=== PATIENT | female | born 1960 | race Caucasian/White ===

== ENCOUNTER → 2024-10-20 | Outpatient (CLI) | payer BC, MEDICARE ==
[2024-10-20] MEDS: HEParin 5,000 UNIT VIAL ONE (13:57)
== END | disposition home or self-care (01) ==
LOC: RAH 13:36
PROVIDERS: ATTEND Internal Medicine Cardiovascular Disease
DX: I42.9 Cardiomyopathy, unspecified (principal)
CPT/HCPCS: 78481; J1644; A9512